=== PATIENT | female | born 1990 | race Caucasian/White ===

== ENCOUNTER 2019-09-04 11:10 | Emergency (ER) | payer OTHER ==
[~2019-09-04] VITALS: Ht 157.5 cm; Wt 49.9 kg
--- NOTE | ~2019-09-04 | EKG ---
[facility] [address] [place] [address] ELECTROCARDIOGRAM REPORT Name: CARLTON WALLNA Room #: [facility] M.R.#: [id number] Admission: Attend Phys: Discharge: Date of : 86 Report #: [id number] THIS REPORT FOR: cc: Sean Estrada MD ~ THIS REPORT FOR: //name// [facility] ED Test Date: 2019-09-04 Test Time: 11:21:15 Pat Name: ALMA WALL Department: Room: Gender: F Message Clerk: JOYCELYN : 1990 Requested By: Mercedes Medellin Order Number: [id number] MD: Measurements Intervals [place] Rate: 94 P: 74 TX: 115 QRS: 50 QRSD: 90 T: 38 QT: 343 QTc: 429 Interpretive Statements Sinus rhythm Borderline short [place] interval No previous ECG available for comparison [email or web address] By: 20 20 Sean [email or web address] MD /EPI
[2019-09-04] MEDS ORDERED: LEVO-T50 MCG PO (11:17)
[2019-09-04 11:51] LABS: URINE BILIRUBIN NEGATIVE (Negative); URINE BLOOD 1+ (Negative); URINE CLARITY CLEAR; URINE COLOR YELLOW; URINE GLUCOSE-RANDOM* NEGATIVE (Negative); URINE KETONES NEGATIVE (Negative); URINE LEUKOCYTES-REFLEX NEGATIVE (Negative); URINE NITRITE-REFLEX NEGATIVE (Negative); URINE PROTEIN (DIPSTICK) NEGATIVE (Negative); URINE SPECIFIC GRAVITY 1.015 (1.005-1.035)
[2019-09-04 12:01] LABS: SQUAMOUS 4-10 Moderate /LPF (0-3)
[2019-09-04 12:02] LABS: BACTERIA-REFLEX None Seen /HPF (None Seen); CASTS None Seen /LPF (None Seen); CRYSTALS None Seen /LPF (None Seen); URINE RBC 0-2 Rare /HPF (0-2); URINE WBC-REFLEX None Seen /HPF (0-5)
[2019-09-04 12:13] LABS: AMP/METHAMP POSITIVE (Negative); BARBITURATES Negative (Negative); BENZODIAZEPINES Negative (Negative); COCAINE Negative (Negative); METHADONE Negative (Negative); OPIATES Negative (Negative); PCP Negative (Negative)
[2019-09-04 12:17] LABS: ABSOLUTE NEUTROPHILS 3.6 thou/uL (1.4-8.2); BASOPHILS 0.7 % (0.0-2.0); EOSINOPHILS 1.1 % (0.0-3.0); HEMATOCRIT 37.2 % (37.0-47.0); HEMOGLOBIN 12.6 gm/dL (12.0-15.0); LYMPHOCYTES 41.1 % (24.0-44.0); MCH 30.8 pg (26.0-34.0); MCHC 33.9 g/dL (28.0-37.0); MCV 90.8 fL (80.0-100.0); MONOCYTES 7.3 % (1.0-8.0); PLATELET COUNT 342 thou/uL (150-400); POLYS 49.8 % (36.0-66.0); RDW 13.2 % (10.5-14.5); WBC 7.2 thou/uL (4.0-11.0)
[2019-09-04 12:21] LABS: CALCIUM 8.9 mg/dL (8.5-10.1); CREATININE 0.7 mg/dL (0.6-1.0); POTASSIUM 3.1 mmol/L (3.5-5.1)
[2019-09-04 12:27] LABS: ALBUMIN 4.1 g/dL (3.4-5.0); TOTAL BILIRUBIN 0.8 mg/dL (<0.1-1.0); TOTAL PROTEIN 7.9 g/dL (6.4-8.2)
[2019-09-04] MEDS ORDERED: HYDROXYZINE PAM25 M1 PO (13:22)
[2019-09-04 13:52] VITALS: BP 173/106
== END 2019-09-04 13:53 | disposition home or self-care (01) ==
LOC: ER 11:10
PROVIDERS: Nurse Practitioner Family
DX: F41.9 Anxiety disorder, unspecified (principal); R55 Syncope and collapse; E87.6 Hypokalemia; R07.89 Other chest pain; Z88.0 Allergy status to penicillin; Z79.899 Other long term (current) drug therapy